=== PATIENT | male | born 1950 | race Caucasian/White ===

== ENCOUNTER 2016-07-24 00:25 | Emergency (ER) | payer BC ==
[~2016-07-24] VITALS: Ht 177.8 cm; Wt 105.0 kg
[2016-07-24] MEDS ORDERED: LIPITOR10 M1 PO (00:44)
[2016-07-24] MEDS ORDERED: LEVAQUIN750 M1 PO (00:44)
[2016-07-24] MEDS ORDERED: PREDNISONE20 MG PO (00:44)
[2016-07-24] MEDS ORDERED: ASPIRIN81 MG PO (00:45)
[2016-07-24] MEDS ORDERED: DILTIAZEM120 MG PO (00:45)
[2016-07-24 01:22] LABS: HEMATOCRIT 51.2 % (39.0-50.0); HEMOGLOBIN 18.2 g/dl (14.0-18.0); IMMATURE GRANULOCYTES 0.9 % (0.0-1.0); MEAN CELL VOLUME 90.8 fL CALC (80.0-100.0); MEAN CORPUSCULAR HGB 32.3 pG CALC (26.0-32.0); MEAN CORPUSCULAR HGB CONC 35.5 g/L CALC (32.0-36.0); NEUT# 11.01 thou/uL (1.82-7.42); RED BLOOD COUNT 5.64 mill/uL (4.70-6.10); RED CELL DISTRI WIDTH 12.5 % (11.5-15.5)
[2016-07-24 01:22] LABS: URINE BILIRUBIN - DIPSTICK NEGATIVE (NEGATIVE); URINE BLOOD DIPSTICK NEGATIVE (NEGATIVE); URINE CLARITY CLEAR; URINE COLOR YELLOW; URINE GLUCOSE - DIPSTICK NEGATIVE (NEGATIVE); URINE KETONE NEGATIVE (NEGATIVE); URINE LEUK ESTERASE NEGATIVE (NEGATIVE); URINE NITRITE - DIPSTICK NEGATIVE (Negative); URINE PROTEIN - DIPSTICK NEGATIVE (NEG-TRACE); URINE SPECIFIC GRAVITY 1.025; URINE UROBILINOGEN - DIPSTICK 0.2 E.U./dL (0.2)
[2016-07-24 01:38] LABS: ALBUMIN 4.3 g/dL (3.2-5.0); ALKALINE PHOSPHATASE 94 u/l (38-126); AMYLASE 85 u/l (30-110); ANION GAP 17 (6-22 (CALC)); BILIRUBIN, TOTAL 0.7 mg/dL (0.0-1.4); BUN 26 mg/dL (8-23); BUN/CREATININE RATIO 24 (12-20 (CALC)); CALCIUM 9.1 mg/dL (8.4-10.2); CARBON DIOXIDE 24 mmol/l (22-30); CHLORIDE 103 mmol/l (95-108); CREATININE 1.1 mg/dL (0.7-1.3); GFR > 60 ML/MIN (>=60 (CALC)); GFR FOR AFR.AMER. > 60 ML/MIN (>=60 (CALC)); GLUCOSE 118 mg/dL (82-115); LIPASE 174 u/l (23-300); POTASSIUM 4.3 mmol/l (3.5-5.1); SGOT/AST 43 u/l (19-48); SGPT/ALT 78 u/l (11-66); SODIUM 139 mmol/l (137-146); TOTAL PROTEIN 7.8 g/dL (6.3-8.2)
[2016-07-24 01:49] LABS: MYOGLOBIN 33 ng/mL (0 - 121)
[2016-07-24] MEDS ORDERED: NORCO1 TA1 PO (03:16)
[2016-07-24] MEDS ORDERED: CIPROFLOXACN500 MG PO (03:16)
[2016-07-24] MEDS ORDERED: METRONIDAZOL500 MG PO (03:16)
[2016-07-24 03:27] VITALS: BP 152/80
== END 2016-07-24 03:39 | disposition home or self-care (01) | DRG 392 ==
LOC: ED 00:25
PROVIDERS: Emergency Medicine
DX: K57.32 Diverticulitis of large intestine without perforation or abscess without bleeding (principal); I48.91 Unspecified atrial fibrillation; I10 Essential (primary) hypertension; I25.2 Old myocardial infarction; Z95.5 Presence of coronary angioplasty implant and graft
CPT/HCPCS: J1650; Q9967

== ENCOUNTER 2016-08-06 11:42 | Inpatient (IN) | payer BC ==
[~2016-08-06] VITALS: Ht 177.8 cm; Wt 100.0 kg
[~2016-08-06 11:42] MED LIST: ASPIRIN81 MG PO; CIPROFLOXACN500 MG PO; DILTIAZEM120 MG PO; LEVAQUIN750 M1 PO; LIPITOR10 M1 PO; METRONIDAZOL500 MG PO; NORCO1 TA1 PO; PREDNISONE20 MG PO
--- NOTE | 2016-08-06 11:49 | NUR ---
PT TO ROOM 8. GAIT STEADY.
--- NOTE | 2016-08-06 12:04 | NUR ---
PT C/O SUPRAPUBIC DISCOMFORT. VSS. DENIES NAUSEA/VOMITING/DIARRHEA.
[2016-08-06 12:41] LABS: HEMATOCRIT 49.1 % (39.0-50.0); IMMATURE GRANULOCYTES 0.3 % (0.0-1.0); MEAN CELL VOLUME 90.9 fL CALC (80.0-100.0); MEAN CORPUSCULAR HGB 31.5 pG CALC (26.0-32.0); MEAN CORPUSCULAR HGB CONC 34.6 g/L CALC (32.0-36.0); NEUT# 10.28 thou/uL (1.82-7.42); RED BLOOD COUNT 5.4 mill/uL (4.70-6.10); RED CELL DISTRI WIDTH 12.3 % (11.5-15.5)
[2016-08-06 12:42] LABS: URINE BLOOD DIPSTICK NEGATIVE (NEGATIVE); URINE CLARITY CLEAR; URINE COLOR YELLOW; URINE GLUCOSE - DIPSTICK NEGATIVE (NEGATIVE); URINE KETONE TRACE mg/dL (NEGATIVE); URINE LEUK ESTERASE NEGATIVE (NEGATIVE); URINE NITRITE - DIPSTICK NEGATIVE (Negative); URINE PROTEIN - DIPSTICK NEGATIVE (NEG-TRACE); URINE UROBILINOGEN - DIPSTICK 0.2 E.U./dL (0.2)
[2016-08-06 12:43] LABS: URINE BILIRUBIN - DIPSTICK SMALL (NEGATIVE)
[2016-08-06] MEDS ORDERED: XARELTO10 MG PO (12:49)
[2016-08-06] MEDS ORDERED: DIGOXIN0.125 MG PO (12:49)
[2016-08-06] MEDS ORDERED: CRESTOR20 MG PO (12:49)
[2016-08-06 12:56] LABS: ALBUMIN 4.4 g/dL (3.2-5.0); ALKALINE PHOSPHATASE 81 u/l (38-126); AMYLASE 110 u/l (30-110); ANION GAP 17 (6-22 (CALC)); BUN 12 mg/dL (8-23); BUN/CREATININE RATIO 11 (12-20 (CALC)); CALCIUM 9.5 mg/dL (8.4-10.2); CARBON DIOXIDE 27 mmol/l (22-30); CHLORIDE 103 mmol/l (95-108); CREATININE 1.1 mg/dL (0.7-1.3); GFR > 60 ML/MIN (>=60 (CALC)); GFR FOR AFR.AMER. > 60 ML/MIN (>=60 (CALC)); GLUCOSE 91 mg/dL (82-115); LIPASE 292 u/l (23-300); POTASSIUM 4.1 mmol/l (3.5-5.1); SGOT/AST 29 u/l (19-48); SGPT/ALT 43 u/l (11-66); SODIUM 142 mmol/l (137-146); TOTAL PROTEIN 7.6 g/dL (6.3-8.2)
[2016-08-06 13:05] LABS: MYOGLOBIN 40 ng/mL (0 - 121)
--- NOTE | 2016-08-06 13:26 | NUR ---
PT IN NO ACUTE DISTRESS. UPDATED ON LAB RESULTS. CONTINUES WITH OV FLUIDS. NO C.O PAIN AT THIS TIME. AT BEDSIDE
--- NOTE | 2016-08-06 14:10 | NUR ---
PT IN NO ACUTE DISTRESS. VSS, DENIES N/V/D. AT BEDSIDE. SKIN PWD
--- NOTE | 2016-08-06 14:30 | NUR ---
PT AWARE OD ADMIT AND AGREEABLE.
--- NOTE | 2016-08-06 14:46 | NUR ---
SBAR PRINTED TO FLOOR
--- NOTE | 2016-08-06 15:15 | NUR ---
MEDICATED FOR ABD DISCOMFORT. PT C/O TREMORS AND "FEELING COLD. TYPANIC TEMP 99.4.
--- NOTE | 2016-08-06 15:50 | NUR ---
PT STATES ABD DISCOMFORT IMPROVED TO 03/20. AWAITING MS BED
--- NOTE | 2016-08-06 16:38 | NUR ---
CALLED REPORT TO FARSHAD FINNEY RN MS2
--- NOTE | 2016-08-06 16:38 | NUR ---
TRANSPORTED TO [facility] VIA STRETCHER ON CONTINUOUS TELEMETRY.
--- NOTE | 2016-08-06 16:45 | NUR ---
Admission Note Report Given to: SBAR PRINTED TO FLOOR Transported by: Wheelchair X Stretcher Transported with: X Nurse Transporter X Patent IV O2 X Case Briefer
--- NOTE | 2016-08-06 16:50 | NUR ---
FROM ER VIA STRETCHER ACCOMPANIED BY AND JULIAN LUA. AMBULATED TO BED WITH STEADY GAIT. RESPS EVEN AND UNLABORED ON ROOM AIR, TELE MONITOR IN PLACE. VOICES NO C/O AT THIS TIME. ORIENTED TO ROOM AND CALL SYSTEM. SAFETY PRECAUTIONS REINFORCED. BED IN LOWEST POSITION WITH WHEELS LOCKED. CALL LIGHT WITHIN REACH. ENCOURAGED PT AND FAMILY TO CALL FOR ANY NEEDS.
[2016-08-06 17:23] VITALS: BP 130/89
[2016-08-06 19:00] VITALS: BP 130/59
--- NOTE | 2016-08-06 19:00 | NUR ---
RECEIVED SHIFT REPORT FROM Kaur YEN RN. PATIENT IS LAYING IN BED, ALERT AND ORIENTED AND APPEARS NOT TO BE IN ANY APPARENT ACUTE DISTRESS OR DISCOMFORT. WILL CONTINUE TO MONITOR.
--- NOTE | 2016-08-06 19:30 | NUR ---
MEDIA JOB TITLES REPORT TEMPERATURE OF 100 DEGREE F. INCENTIVE SPIROMETER PROVIDED TO PATIENT. EDUCATION PROVIDED ON THE PURPOSE OF THE EQUIPMENT WEEL HOW TO USE IT. PATIENT RETURN DEMONSTRATION. WILL CONTINUE TO MONITOR.
[2016-08-07] VITALS: BP 125/84
--- NOTE | 2016-08-07 | NUR ---
PATIENT AWAKE AN LAYING IN BED. NO ACUTE CHANGES NOTED IN PATIENT'S CONDITION. TEMP 100.2. ENCOURAGED USE OF INCENTIVE SPIROMETRY.
[2016-08-07 04:00] VITALS: BP 118/80
--- NOTE | 2016-08-07 04:00 | NUR ---
NO CHANGE ACUTE CHANGE NOTED IN PT'S CONDITION. PT OOB TO BATHROOM.
--- NOTE | 2016-08-07 07:16 | NUR ---
REPORT RECEIVED FROM STEFFI HANSON. PT SITTING UPRIGHT IN BED. DENIES PAIN. REPORTING OF CONCERNS ENCOURAGED. PLAN OF CARE DISCUSSED. CALL LIGHT REVIEWED AND IN REACH. PT STATES UNDERSTANDING.
[2016-08-07 08:12] VITALS: BP 138/94
[2016-08-07 12:00] VITALS: BP 137/80
--- NOTE | 2016-08-07 14:30 | NUR ---
PT LEFT FLOOR VIA WHEELCHAIR ACCOMPANIED BY VOLUNTEER, DISTINATION CT.
--- NOTE | 2016-08-07 15:15 | NUR ---
PT RETURNED FROM CT. REPORTS SEVERE LOWER ABDOMINAL PAIN, STARTING DURING CONTRAST ADMINISTRATION. TORADOL ADMINISTERED. WILL MONITOR FOR EFFECTIVENESS.
[2016-08-07 16:00] VITALS: BP 134/82
--- NOTE | 2016-08-07 16:00 | NUR ---
PT REPORTS RELIEF OF PAIN. WILL CONTINUE TO MONITOR.
--- NOTE | 2016-08-07 18:50 | NUR ---
RECEIVED SHIFT REPORT FROM STEFFI SALDIVAR. PATIENT IS IN STABLE CONDITION AND LAYING IN BED. PATIENT APPEARS NOT TO BE IN ANY APPARENT ACUTE DISTRESS OR DISCOMFORT DENIES PAIN. WILL CONTINUE TO MONITOR.
[2016-08-07 19:30] VITALS: BP 127/81
[2016-08-08] VITALS (9 sets, daily range): BP systolic 122–144; BP diastolic 76–87
--- NOTE | 2016-08-08 02:29 | NUR ---
PATIENT IS RESTING WITH EYES CLOSED AND APPEARS NOT TO BE IN ANY APPARENT ACUTE DISTRESS OR DISCOMFORT AT THIS TIME.
--- NOTE | 2016-08-08 04:00 | NUR ---
NO ACUTE CHANGES NOTED IN PATIENT'S CONDITION.
[2016-08-08 05:47] LABS: HEMATOCRIT 42.1 % (39.0-50.0); HEMOGLOBIN 14.6 g/dl (14.0-18.0); IMMATURE GRANULOCYTES 0.4 % (0.0-1.0); MEAN CELL VOLUME 92.9 fL CALC (80.0-100.0); MEAN CORPUSCULAR HGB 32.2 pG CALC (26.0-32.0); MEAN CORPUSCULAR HGB CONC 34.7 g/L CALC (32.0-36.0); NEUT# 8.13 thou/uL (1.82-7.42); RED BLOOD COUNT 4.53 mill/uL (4.70-6.10); RED CELL DISTRI WIDTH 12.6 % (11.5-15.5)
[2016-08-08 06:04] LABS: ANION GAP 13 (6-22 (CALC)); BUN 6 mg/dL (8-23); BUN/CREATININE RATIO 6 (12-20 (CALC)); CALCIUM 8.3 mg/dL (8.4-10.2); CARBON DIOXIDE 25 mmol/l (22-30); CHLORIDE 106 mmol/l (95-108); GFR > 60 ML/MIN (>=60 (CALC)); GFR FOR AFR.AMER. > 60 ML/MIN (>=60 (CALC)); GLUCOSE 83 mg/dL (82-115); POTASSIUM 4.2 mmol/l (3.5-5.1); SODIUM 140 mmol/l (137-146)
--- NOTE | 2016-08-08 07:10 | NUR ---
REPORT RECIEVED FROM STEFFI HANSON; PT RESTING IN BED; NO S/S OF DISTRESS NOTED; PT C/O DIARRHEA THROUGHOUT THE NIGHT; IVF INFUSING AT PRESCRIBED RATE; FLUIDS ENCOURAGED; PT DENIES ANY NEEDS AT THIS TIME; CALL LIGHT WITHIN REACH; WILL CONTINUE TO MONITOR
--- NOTE | 2016-08-08 11:30 | NUR ---
ED CALLED TO INFORM NURSE HR >150 ON TELE MONITOR; PT JUST RETURNING FROM BATHROOM AT THIS TIME; PT STATES IT ALWAYS GOES UP AFTER I GET UP; PT STABLE AT THIS TIME; IVF INFUSING AT PRESCRIBED RATE; PT DENIES ANY NEEDS AT THIS TIME; CALL LIGHT WITHIN REACH; WILL CONTINUE TO MONITOR
--- NOTE | 2016-08-08 16:50 | NUR ---
PT SITTING UP IN BED; C/O FEELING ANXIOUS STATES "I JUST CAN'T TURN MY BRAIN OFF FOR A LITTLE BIT TO GET SOME REST"; PT MEDICATED WITH XANAX PER PRN ORDERS; PT DENIES ANY PAIN OR DISCOMFORT; CALL LIGHT WITHIN REACH; WILL CONTINUE TO MONITOR
--- NOTE | 2016-08-08 19:45 | NUR ---
PT. SITTING UP IN BED WITH NO DISTRESS NOTED. DENIES NEEDS/PAIN OR NAUSEA. ASSESSMENT COMPLETED. BS ACTIVE. PT. DENIES WANTING BRAYDON HOSE TO BE APPLIED. IV SITE PATENT AND INFUSING ORDERED IVF. URINAL EMPTIED OF 700 ML OF LIGHT LONG URINE. URINAL REPLACED AT BEDSIDE AND INSTRUCTED TO CONTINUE USE. PT. DENIES ANY NEEDS AT THIS TIME. INSTRUCTED TO CALL FOR ANY NEEDS. CALL LIGHT IS IN REACH. WILL CONITNUE TO MONITOR.
--- NOTE | 2016-08-08 21:16 | NUR ---
PT. SITTING UP IN BED WITH NO DISTRESS NOTED. TELE MONITOR IN PLACE, NEW BATTERIES PLACED. PO FLUIDS OFFERED. SCHED MED GIVEN. ENCOURAGED TO CALL FOR ANY NEEDS. CALL LIGHT IS IN REACH.
--- NOTE | 2016-08-08 23:26 | NUR ---
PT. RESTING IN BED WITH NO DISTRESS NOTED WITH EYES CLOSED. RESP EVEN AND UNLABORED. SCHED ANGELICA MCKAY. CALL LIGHT IS IN REACH.
[2016-08-09 00:09] VITALS: BP 111/67
--- NOTE | 2016-08-09 03:15 | NUR ---
PT. RESTING IN BED WITH EYES CLOSED, NO DISTRESS NOTED, SNORING. RESP EVEN AND UNLABORED. CALL LIGHT IS IN REACH. WILL CONTINUE TO MONITOR.
[2016-08-09 03:59] VITALS: BP 135/80
[2016-08-09 05:52] LABS: HEMATOCRIT 40.2 % (39.0-50.0); HEMOGLOBIN 13.9 g/dl (14.0-18.0); IMMATURE GRANULOCYTES 0.4 % (0.0-1.0); MEAN CELL VOLUME 91.2 fL CALC (80.0-100.0); MEAN CORPUSCULAR HGB 31.5 pG CALC (26.0-32.0); MEAN CORPUSCULAR HGB CONC 34.6 g/L CALC (32.0-36.0); NEUT# 6.25 thou/uL (1.82-7.42); RED BLOOD COUNT 4.41 mill/uL (4.70-6.10); RED CELL DISTRI WIDTH 12.3 % (11.5-15.5)
[2016-08-09 06:13] LABS: ANION GAP 11 (6-22 (CALC)); BUN 4 mg/dL (8-23); BUN/CREATININE RATIO 4 (12-20 (CALC)); CALCIUM 8.2 mg/dL (8.4-10.2); CARBON DIOXIDE 25 mmol/l (22-30); CHLORIDE 106 mmol/l (95-108); CREATININE 0.9 mg/dL (0.7-1.3); GFR > 60 ML/MIN (>=60 (CALC)); GFR FOR AFR.AMER. > 60 ML/MIN (>=60 (CALC)); GLUCOSE 86 mg/dL (82-115); POTASSIUM 3.6 mmol/l (3.5-5.1); SODIUM 138 mmol/l (137-146)
--- NOTE | 2016-08-09 07:10 | NUR ---
REPORT RECIEVED FROM STEFFI GUILLEN; PT RESTING IN BED; NO S/S OF DISTRESS NOTED; PT C/O NOT RESTING THROUGHOUT THE NIGHT VERY WELL; IVF INFUSING AT PRESCRIBED RATE; PT DENIES ANY PAIN AT THIS TIME; CALL LIGHT WITHIN REACH; WILL CONTINUE TO MONITOR
[2016-08-09 08:02] VITALS: BP 140/91
[2016-08-09] MEDS ORDERED: TRAMADOL HCL50 MG PO (13:40)
[2016-08-09] MEDS ORDERED: METRONIDAZOL500 MG PO (13:40)
[2016-08-09] MEDS ORDERED: FLORASTOR250 M1 PO (13:40)
[2016-08-09] MEDS ORDERED: ALPRAZOLAM0.25 MG PO (13:40)
[2016-08-09] MEDS ORDERED: Levaquin PO (13:40)
[2016-08-09 14:17] VITALS: BP 136/86; BP 138/70
--- NOTE | 2016-08-09 17:31 | NUR ---
Discharge instructions given. Patient verbalizes understanding of same. Discharged in stable condition via Ambulatory to Home with family. All belongings sent with pt.
== END 2016-08-09 17:31 | disposition home or self-care (01) | DRG 392 ==
LOC: ENPENDDIS → ED 11:42 → ED-I 13:52 → ED 14:51 → MS2 14:52
PROVIDERS: Emergency Medicine; Internal Medicine; ADMIT Internal Medicine; ATTEND Internal Medicine
DX: K57.20 Diverticulitis of large intestine with perforation and abscess without bleeding (principal); I48.91 Unspecified atrial fibrillation; I10 Essential (primary) hypertension; I25.10 Atherosclerotic heart disease of native coronary artery without angina pectoris; F32.9 Major depressive disorder, single episode, unspecified; F41.9 Anxiety disorder, unspecified; Z95.5 Presence of coronary angioplasty implant and graft; Z79.02 Long term (current) use of antithrombotics/antiplatelets
CPT/HCPCS: Q9967

== ENCOUNTER 2019-03-26 | Day surgery (SDC) | payer MEDICARE ==
[~2019-03-26] MED LIST changes: +ALPRAZOLAM0.25 MG PO; +CRESTOR20 MG PO; +DIGOXIN0.125 MG PO; +FLORASTOR250 M1 PO; +LEXAPRO10 MG PO; +Levaquin PO; +PROTONIX20 M1 PO; +ROSUVASTATIN CA20 MG PO; +TRAMADOL HCL50 MG PO; +XARELTO10 MG PO
== END 2019-03-26 09:05 | disposition home or self-care (01) ==
PROC: 0DBH8ZX Excision of Cecum, Via Natural or Artificial Opening Endoscopic, Diagnostic (ICD-10-PCS; principal; 2019-03-26)
PROC: 0DBL8ZX Excision of Transverse Colon, Via Natural or Artificial Opening Endoscopic, Diagnostic (ICD-10-PCS; 2019-03-26)
DX: Z12.11 Encounter for screening for malignant neoplasm of colon (principal); D12.3 Benign neoplasm of transverse colon; K63.5 Polyp of colon; K57.30 Diverticulosis of large intestine without perforation or abscess without bleeding; I10 Essential (primary) hypertension; Z86.010 Personal history of colon polyps; Z90.49 Acquired absence of other specified parts of digestive tract